=== PATIENT | female | born 1945 | race Native Hawaiian/Other Pacific Islander ===

== ENCOUNTER 2017-09-12 06:31 | Day surgery (SDC) | payer MEDICARE, OTHER ==
[2017-09-12 06:47] VITALS: BMI 31.6
--- NOTE | 2017-09-12 08:11 | CP.SDSHP ---
Same Day Surgery H & P - History Proposed Procedure: EGD Pre-Op Diagnosis: Quintanilla's esophagus - Previous Medical/Surgical History Cardiac: Hypertension Endocrine/Metabolic: Diabetes Misc: Other Comments: Hyperlipidemia - Allergies Allergies: Allergies exenatide [From [place]etta] Allergy (Verified 09/12/17 06:44) RASH sitagliptin [From Januvia] Allergy (Verified 09/12/17 06:44) SWELLING - Current Medications Current Medications: See reconciliation sheet - Physical Exam General Appearance: WD WN female in NAD Vital Signs: Vital Signs 09/12/17 09/12/17 06:47 08:07 Temperature 96.6 F L 96.6 F L Pulse Rate 72 72 Respiratory 16 16 Rate Blood Pressure 143/62 143/62 O2 Sat by Pulse 97 97 Oximetry Mental Status: Alert & Oriented x3 Neuro: WNL Heart: WNL Lungs: WNL GI: WNL - {Optional Preform as Required} Abdomen: WNL - Impression Impression: Quintanilla's esophagus surveillance Pt. Evaluated Today:Candidate for Anesthesia & Procedure: Yes - Date & Time Date: 09/12/17 Time: 08:11 Short Stay Discharge - Short Stay Discharge Admitting Diagnosis/Reason for Visit: GASTRIC REFLUX Disposition: HOME/ ROUTINE
[2017-09-12] MEDS ORDERED: Propofol 10 mg/ml Inj (20 ML) ONE (08:14)
[2017-09-12] MEDS ORDERED: Lidocaine Hydrochloride 5 ML INJ ONE (08:14)
[2017-09-12 08:43] VITALS: TEMP 97.3
[2017-09-12 08:56] VITALS: O2SAT 99
[2017-09-12 09:52] VITALS: BP 145/63; PULSE 66; RESP 17
== END 2017-09-12 09:45 | disposition home or self-care (01) ==
LOC: C.ENDO 06:31
PROVIDERS: ATTEND Internal Medicine Gastroenterology
DX: K21.9 Gastro-esophageal reflux disease without esophagitis (principal); K22.70 Barrett's esophagus without dysplasia; K20.9 Esophagitis, unspecified; K31.7 Polyp of stomach and duodenum; K29.70 Gastritis, unspecified, without bleeding; K44.9 Diaphragmatic hernia without obstruction or gangrene
CPT/HCPCS: 43239; 82948; 88305; 88312; 88342; J2704

== ENCOUNTER 2019-02-06 18:20 | Outpatient (CLI) | payer MEDICARE | END 2019-02-06 18:21 | disposition home or self-care (01) | LOC: C.SLEEP 18:21 | DX: G47.33 Obstructive sleep apnea (adult) (pediatric) (principal) ==

== ENCOUNTER 2019-02-26 18:56 | Outpatient (CLI) | payer MEDICARE | END 2019-02-26 18:57 | disposition home or self-care (01) | LOC: C.SLEEP 18:57 | DX: G47.33 Obstructive sleep apnea (adult) (pediatric) (principal) ==